=== PATIENT | male | born 1955 | race Caucasian/White ===

== ENCOUNTER 2017-04-29 11:59 | Emergency (ER) | payer BC, OTHER ==
[~2017-04-29] VITALS: Ht 180.3 cm; Wt 111.1 kg
--- NOTE | 2017-04-29 12:06 | ED Upper Extremity ---
General Chief Complaint: Upper Extremity Stated Complaint: FALL FROM TRACTOR Source: patient Exam Limitations: no limitations History of Present Illness Date Seen by Provider: Apr 29, 2017 Time Seen by Provider: 12:04 Initial Comments To ER per EMS with right arm pain. Patient was standing about 3 feet up on his tractor attempting to fuel the tractor when he slipped and fell landing on the right shoulder and felt a pop. He has persistent pain. EMS arrived placed him in a sling and swath, administered 50 Dru grams of fentanyl and brought him to the hospital. He is from [facility] but was working at one of his arms up near [facility]. Onset: just prior to arrival Severity: moderate Pain/Injury Location: right shoulder Method of Injury: fell Modifying Factors: Worse With Movement Allergies and Home Medications Allergies Coded Allergies: No Known Drug Allergies (Unverified , 04/29/17) Home Medications Hydrocodone/Acetaminophen 1 Each Tablet, 1 EACH PO Q4H PRN for PAIN-SEVERE TO BREAKTHROUGH Prescribed by: YFN PADRON on 04/29/17 1235 Patient Home Medication List Home Medication List Reviewed: Yes Constitutional: see HPI EENTM: see HPI Respiratory: no symptoms reported Cardiovascular: no symptoms reported Musculoskeletal: see HPI Skin: no symptoms reported Psychiatric/Neurological: No Symptoms Reported Physical Exam Vital Signs Vital Signs - First Documented 04/29/17 12:00 Temp 97.5 Pulse 69 Resp 18 B/P (MAP) 142/94 (110) Pulse Ox 98 Capillary Refill : General Appearance: WD/WN, no apparent distress HEENT: PERRL/EOMI, normal ENT inspection Neck: non-tender, full range of motion Respiratory: no respiratory distress, no accessory muscle use Gastrointestinal: normal bowel sounds, non tender, soft Shoulder: deformity, pain, soft tissue tenderness, swelling Elbow/Forearm: normal inspection, non-tender, Right Hand: normal inspection, non-tender, Right Neurologic/Tendon: normal sensation, normal motor functions, normal tendon functions Neurologic/Psychiatric: alert, normal mood/affect, oriented x 3 Skin: normal color, warm/dry Comments He is distally neurovascularly intact. Pain is well controlled as long as he does not move his arm. Did not hit his head. No other injuries. Progress/Results/Core Measures Results/Orders My Orders Orders - YFN PADRON LINEN ROOM ATTENDANT Humerus, Right, 2 Views (04/29/17 12:03) Saline Lock/Iv-Start (04/29/17 12:03) Morphine Injection (Morphine Injection (04/29/17 12:15) Vital Signs/I&O Vital Sign - Last 12Hours 04/29/17 12:00 Temp 97.5 Pulse 69 Resp 18 B/P (MAP) 142/94 (110) Pulse Ox 98 Departure Impression Impression: Primary Impression: Nondisplaced fracture of proximal end of humerus Disposition: HOME, SELF-CARE Condition: Stable Departure-Patient Inst. Decision time for Depature: 12:26 Referrals: STORMY AYALA MD,RITCHIE GARVEY,ARNULFO MOHAN,RAYSHAWN GEE,ADALI PALAFOX,YOSEF JENKINS,TRESSA Martinez MD ORTHO 4 STATES Patient Instructions: Fracture (DC) Add. Discharge Instructions: Take medications as directed, call to make an appointment time today to follow- up with an orthopedic surgeon. Wear the sling at all times, use ice at 20 minute intervals to help with swelling and pain. Return back to emergency room for increased pain swelling numbness or tingling changes in skin color. All discharge instructions reviewed with patient and/or family. Voiced understanding. Scripts Hydrocodone/Acetaminophen (Dixon 5-325 Tablet) 1 Each Tablet 1 EACH PO Q4H Y for PAIN-SEVERE TO BREAKTHROUGH, #30 TAB Prov: YFN PADRON APRN 04/29/17 YFN PADRON APRN Apr 29, 2017 12:06
[2017-04-29] MEDS ORDERED: morphine INJ 10 MG/ML 1ML (SYR OR VIAL) IVP ONE (12:15)
[2017-04-29] MEDS ORDERED: HYDR-757 PO (12:35)
--- NOTE | 2017-04-29 12:37 | Diagnostic Imaging Report ---
INDICATION: Fall, injury to the right humerus. TIME OF EXAM: 12:15 p.m. FINDINGS: Two views of the right humerus demonstrate apparent fracture of the neck of the humerus. No significant displacement or angulation is seen. Glenohumeral alignment is normal. There appears to be a normal alignment at the elbow. IMPRESSION: Nondisplaced proximal humerus fracture. Dictated by: Dictated on workstation # [id number]
[2017-04-29] MEDS ORDERED: HYDROcodone/APAP 5 MG/325 MG (LORTAB) TAB ONE (13:20)
[2017-04-29] MEDS ORDERED: HYDROcodone/APAP 5 MG/325 MG (LORTAB) TAB PO ONE (13:30)
[2017-04-29 13:48] VITALS: BP 142/94
== END 2017-04-29 13:36 | disposition home or self-care (01) ==
LOC: ER 12:01
DX: S42.201A Unspecified fracture of upper end of right humerus, initial encounter for closed fracture (principal); W01.0XXA Fall on same level from slipping, tripping and stumbling without subsequent striking against object, initial encounter; X50.0XXA Overexertion from strenuous movement or load, initial encounter
CPT/HCPCS: 73060